=== PATIENT | male | born 1960 | race Caucasian/White ===

== ENCOUNTER 2017-01-29 16:07 | Emergency (ER) | payer MEDICARE, MEDICAID ==
[2017-01-29 16:20] VITALS: BP 133/79
--- NOTE | 2017-01-29 16:43 | UC ---
Allergic Reaction HPI - HPI Summary HPI Summary: 56 yo M has been seeing Dr. Garnica's office in [place] for a nickel allergy that has gone systemic. Did a steroid taper already, and has been taking hydroxyzine at bedtime only and benadryl at bedtime only. States he finished the steroid taper 4 days ago and the rash is worse again. Has also been doing clobetasol ointment. States he gets new pustules and he can't help scratching. States Dr. Garnica's office biopsied the rash, and dx'd the nickel allergy. No hx of MRSA in the pt. - History of Current Complaint Chief Complaint: TEEkin Stated Complaint: RASH ARMS/HANDS ALLERGIC REACTION Time Seen by Provider: 01/29/17 16:19 Hx Obtained From: Patient, Family/Dietitian Assistant - Onset/Duration: Gradual Onset, Lasting Weeks, Still Present Severity Initially: Moderate Severity Currently: Severe Pain Intensity: 0 Pain Scale Used: 0-10 Numeric Location: Diffuse Character: Pruritus Aggrevating Factor(s): Nothing Alleviating Factor(s): Nothing Associated Signs And Symptoms: Positive: Rash - Related Hx Possible Reaction To: Other: - nickel - Allergies/Home Medications Allergies/Adverse Reactions: Allergies Allergy/AdvReac Type Severity Reaction Status Date / Time Naproxen [From Aleve] Allergy Intermediate hives/itche Verified 01/29/17 16:20 s Home Medications: Home Medications Cholecalciferol TAB* [Vitamin D TAB*] 1,000 unit PO DAILY 01/29/17 [History Confirmed 01/29/17] Clobetasol Propionate Emollien [Clobetasol Propionate E] 0.05 % EX DAILY [History Confirmed 01/29/17] Famotidine TAB* [Pepcid 20 MG TAB*] 40 mg PO BEDTIME 01/29/17 [History Confirmed 01/29/17] LevoCETirizine TAB (NF) [Xyzal TAB (NF)] 5 mg PO BEDTIME 01/29/17 [History Confirmed 01/29/17] Losartan Potassium 100 mg PO BEDTIME 01/29/17 [History Confirmed 01/29/17] Metformin ER (NF) 500 mg PO BEDTIME 01/29/17 [History Confirmed 01/29/17] Metoprolol Tartrate TAB* [Lopressor TAB*] 50 mg PO BEDTIME 01/29/17 [History Confirmed 01/29/17] [place]-3 Fatty Acids (Nf) [Fish Oil (NF)] 1,000 mg PO DAILY 01/29/17 [History Confirmed 01/29/17] Pravastatin (NF) [Pravachol (NF)] 20 mg PO BEDTIME 01/29/17 [History Confirmed 01/29/17] Psyllium TAISHA* [Metamucil TAISHA*] 1 pkt PO BEDTIME 01/29/17 [History Confirmed ] Tamsulosin CAP* [Flomax CAP*] 0.4 mg PO BEDTIME 01/29/17 [History Confirmed ] amLODIPine TAB* [Norvasc 5 mg TAB*] 5 mg PO BEDTIME 01/29/17 [History Confirmed 01/29/17] PMH/Surg Hx/FS Hx/Imm Hx Previously Healthy: No - AAA Endocrine History: Diabetes, Dyslipidemia Cardiovascular History: Cardiac Disease, Hypertension Respiratory History: COPD - Surgical History Surgical History: Yes Surgery Procedure, Year, and Place: neck 3-4-5 fusions. ulnar nerve/right. gallbladder. appendix. cardiac cath-normal 2016 - Family History Known Family History: Positive: Hypertension - Social History Occupation: Disabled Alcohol Use: None Substance Use Type: None Smoking Status (MU): Former Smoker When Did the Patient Quit Smoking/Using Tobacco: 2014 Review of Systems Constitutional: Negative Skin: Rash Eyes: Negative ENT: Negative Respiratory: Negative Cardiovascular: Negative Gastrointestinal: Negative Genitourinary: Negative Motor: Negative Neurovascular: Negative Musculoskeletal: Negative Neurological: Negative Psychological: Negative All Other Systems Reviewed And Are Negative: Yes Physical Exam Triage Information Reviewed: Yes Appearance: Well-Appearing, No Pain Distress, Obese Vital Signs: Initial Vital Signs Temp 98.1 F 01/29/17 16:11 Pulse 69 01/29/17 16:11 Resp 18 01/29/17 16:11 BP 133/79 01/29/17 16:11 Pulse Ox 97 01/29/17 16:11 Vital Signs Reviewed: Yes Eyes: Positive: Conjunctiva Clear ENT: Positive: Normal ENT inspection Neck: Positive: Supple Respiratory: Positive: No respiratory distress Cardiovascular: Positive: Brisk Capillary Refill Musculoskeletal: Positive: Strength Intact, ROM Intact Neurological: Positive: Alert, Muscle Tone Normal Psychological Exam: Normal Skin: Positive: rashes - total body macular papular pruritic, erythematous pustules Allergic Reaction Course/Dx - Course Course Of Treatment: pt advised re: importance of taking prednisone exactly as directed. - Differential Dx/Diagnosis Differential Diagnosis/HQI/PQRI: Erythema Multiforme, Local Allergic Reaction Provider Diagnoses: acute systemic allergic reaction to nickel Discharge - Discharge Plan Condition: Stable Disposition: HOME Prescriptions: hydrOXYzine HCL TAB* [Atarax 25 MG TAB*] 25 mg PO QID PRN #30 tab PRN Reason: Pruritis predniSONE TAB* [Deltasone TAB*] 40 mg PO DAILY #30 tab Patient Education Materials: General Allergic Reaction (ED) Referrals: SAMANTHA Hebert [Primary Care Provider] - Additional Instructions: Keep your appointment with Dr. Garnica on 02/03/17. Take the prednisone exactly as directed. You may increase the hydroxyzine to every 6 hrs as needed for itching. You may also take benadryl 50mg every 6 hrs in addition to the hydroxyzine for itching. Try not to scratch or open the pustules. Return to urgent care if you have new or worsening symptoms.
== END 2017-01-29 17:11 | disposition home or self-care (01) ==
LOC: UCCORT 16:07
DX: T78.49XD Other allergy, subsequent encounter (principal); Z88.8 Allergy status to other drugs, medicaments and biological substances; E11.9 Type 2 diabetes mellitus without complications; Z79.84 Long term (current) use of oral hypoglycemic drugs; I10 Essential (primary) hypertension; E78.5 Hyperlipidemia, unspecified; I51.9 Heart disease, unspecified; J44.9 Chronic obstructive pulmonary disease, unspecified; Z87.891 Personal history of nicotine dependence; T78.49XA Other allergy, initial encounter
CPT/HCPCS: 99212; G0463

== ENCOUNTER 2017-09-23 16:37 | Emergency (ER) | payer MEDICARE, MEDICAID ==
[2017-09-23 17:52] VITALS: BP 160/99
--- NOTE | 2017-09-23 18:10 | UC ---
UC General HPI - HPI Summary HPI Summary: PT IS C/O SINUS PAIN, PRESSURE AND CONGESTION PLUS COUGH AND SOB. HE ADMITS TO HX COPD. HAD FEVER 101 THIS AM. NO CP. HAS BEEN ILL X 2 WEEKS. ADMITS TO HX HTN WITH POOR CONTROL AND HX DM WITH STABLE BS DESPITE BEING ILL. - History of Current Complaint Hx Obtained From: Patient, Family/Mr Teacher Onset/Duration: Gradual Onset Pain Intensity: 5 Aggravating: NOTHING Alleviating: NOTHING Associated Signs & Symptoms: Positive: Cough, Fever, Headache, SOB, Wheezing. Negative: Chest Pain, Diarrhea, Dysuria, Nausea, Vomiting <Sonia Hooks - Last Filed: 09/23/17 18:31> <Quiana Pedraza - Last Filed: 09/23/17 19:05> - History of Current Complaint Chief Complaint: UCRespiratory Stated Complaint: COUGH,CONGESTION Time Seen by Provider: 09/23/17 18:03 - Allergy/Home Medications Allergies/Adverse Reactions: Allergies Allergy/AdvReac Type Severity Reaction Status Date / Time naproxen [From Aleve] Allergy Severe hives,itchi Verified 09/23/17 17:40 ng PMH/Surg Hx/FS Hx/Imm Hx - Additional Past Medical History Additional PMH: SINUSITIS Endocrine History: Diabetes Cardiovascular History: Hypertension Respiratory History: COPD, Asthma - Surgical History Surgical History: Yes Surgery Procedure, Year, and Place: neck 3-4-5 fusions. ulnar nerve/right. gallbladder. appendix. cardiac cath-normal 2016. BOWEL RESECTION FOR DIVERTICULITIS - Family History Known Family History: Positive: Hypertension - Social History Lives: With Family Alcohol Use: None Substance Use Type: None Smoking Status (MU): Former Smoker When Did the Patient Quit Smoking/Using Tobacco: 2014 <Sonia Hooks - Last Filed: 09/23/17 18:31> Review of Systems Constitutional: Fever, Chills ENT: Sore Throat, Nasal Discharge, Sinus Congestion, Sinus Pain/Tenderness Respiratory: Shortness Of Breath, Cough Is Patient Immunocompromised?: No All Other Systems Reviewed And Are Negative: Yes <Sonia Hooks - Last Filed: 09/23/17 18:31> Physical Exam Triage Information Reviewed: Yes Appearance: Well-Appearing Vital Signs: Initial Vital Signs Temp 97.9 F 09/23/17 17:45 Pulse 85 09/23/17 17:45 Resp 20 03/13/18 17:45 BP 160/99 09/23/17 17:45 Pulse Ox 94 09/23/17 17:45 Vital Signs Reviewed: Yes Eyes: Positive: Conjunctiva Clear ENT: Positive: Pharynx normal, Nasal congestion, Nasal drainage - YELLOW, TMs normal, Sinus tenderness Neck: Positive: Supple, Nontender, No Lymphadenopathy Respiratory: Positive: Lungs clear, No respiratory distress, Decreased breath sounds Cardiovascular: Positive: No Murmur Abdomen Description: Positive: Nontender, No Organomegaly, Soft Bowel Sounds: Positive: Present Musculoskeletal: Positive: No Edema Neurological: Positive: Alert Psychological: Positive: Age Appropriate Behavior Skin Exam: Normal <Sonia Hooks - Last Filed: 09/23/17 18:31> Vital Signs: Initial Vital Signs Temp 97.9 F 09/23/17 17:45 Pulse 85 09/23/17 17:45 Resp 20 09/23/17 17:45 BP 160/99 09/23/17 17:45 Pulse Ox 94 09/23/17 17:45 <Quiana Pedraza - Last Filed: 09/23/17 19:05> Course/Dx - Course Course Of Treatment: non toxic, not hypoxic, no concern for pneumonia/DKA. will tx for copd and sinusitis. pt advised of risk for increase BS with prednisone, he is already aware. - Differential Dx - Multi-Symptom Provider Diagnoses: sinusitis. copd flare <Sonia Hooks - Last Filed: 09/23/17 18:31> Discharge <Sonia Hooks - Last Filed: 09/23/17 18:31> <Quiana Pedraza - Last Filed: 09/23/17 19:05> - Discharge Plan Condition: Stable Disposition: HOME Prescriptions: Amoxicillin/Clavulanate TAB* [Augmentin TAB 875*] 875 mg PO BID 10 Days #20 tab predniSONE TAB* [Deltasone TAB*] 40 mg PO DAILY 3 Days #6 tab Patient Education Materials: Sinusitis (ED) Referrals: SAMANTHA Hebert [Primary Care Provider] - 5 Days Additional Instructions: USE RESCUE INHALER 2 PUFFS EVERY 6 HOURS Attestation Statement User Type: Provider - I was available for consult. This patient was seen by the PORFIRIO. The patient was not presented to, seen by, or examined by me. Bonny <Quiana Pedraza - Last Filed: 09/23/17 19:05>
== END 2017-09-23 18:35 | disposition home or self-care (01) ==
LOC: UCCORT 16:37
DX: J32.9 Chronic sinusitis, unspecified (principal); J44.1 Chronic obstructive pulmonary disease with (acute) exacerbation; E11.9 Type 2 diabetes mellitus without complications; Z79.84 Long term (current) use of oral hypoglycemic drugs; I10 Essential (primary) hypertension; Z88.6 Allergy status to analgesic agent; Z87.891 Personal history of nicotine dependence
CPT/HCPCS: 99212; G0463